=== PATIENT | female | born 1955 | race Hispanic/Latino ===

== ENCOUNTER 2017-02-11 13:26 | Outpatient (CLI) | payer OTHER ==
--- NOTE | 2017-02-12 11:21 | Mammography Report ---
BILATERAL DIGITAL DIAGNOSTIC MAMMOGRAM with CAD and BILATERAL BREAST ULTRASOUND: 02/11/17 CLINICAL: Bilateral lumps. The patient was vague and could not point to a particular lump in either breast. She stated that her doctor had felt lumps. COMPARISON:06/14/13 FINDINGS: The breasts are predominantly fatty with a few bilateral retroareolar fibroglandular densities.No mass, architectural distortion or suspicious calcifications . Ultrasound of the right breast (including all four quadrants and the retroareolar area) was performed and 2 areas of shadowing at 9 o'clock subareolar and 4 cm from the nipple. No distinct mass or cyst is identified. However, poorly marginated areas of slightly increased echogenicity are identified at the shadowing. The area is lumpy by palpation. Ultrasound of the left breast (including all four quadrants and the retroareolar area) was performed and demonstrated normal fibroglandular and fatty structures. No mass, cyst or shadowing. IMPRESSION: 1. Probably benign areas of slightly increased echogenicity with shadowing in the right breast at 9 o'clock. The appearance is suggestive of benign fat necrosis but the patient denies any known trauma to the breast. 2. Negative left breast. BI-RADS CATEGORY: 3 - - Probably Benign RECOMMENDATION: Six month followup right mammogram and right breast ultrasound. ACR BI-RADS MAMMOGRAPHIC CODES: 0 = Needs additional imaging evaluation; 1 = Negative; 2 = Benign; 3 = Probably benign; 4 = Suspicious; 5 = Malignant; 6 = Known biopsy-proven malignancy COMMENT: 1. Dense breast tissue, i.e., adenosis, fibrocystic changes, etc., may obscure an underlying neoplasm. 2. Approximately 10% of cancers are not detected with mammography. 3. A negative mammography report should not delay biopsy if a clinically suspicious mass is present. COMMENT: Patient follow-up letters are generated by our [employer] application.
--- NOTE | 2017-02-12 13:51 | Mammography Report ---
BONE DEXA:02/11/17 13:26:00 CLINICAL: Postmenopausal. No comparison. TECHNIQUE: Two site bone DEXA performed on an Hologic scanner. FINDINGS: The average BMD of the lumbar spine L1-L4 is 1.199g/cm squared with a T-score of +1.4 and a Z-score of +2.9. The average BMD of the left hip is 0.932g/cm squared with a T-score of -0.1 and a Z-score of +0.9. However, the femoral neck BMD is 0.661g/cm squared with a T score of -1.7 and a Z score of -0.3 IMPRESSION: 1. WHO classification: Normal with average fracture risk based on lumbar spine measurements. 2. WHO classification: Osteopenia with increased fracture risk based on left femoral neck measurements. RECOMMENDATION: Clinical correlation and routine screening. DEFINITIONS: BMD = Bone Mineral Density T-score = BMD related to mean peak bone mass of young adult (mean expressed in Standard Deviation) Z-score = Age matched BMD expressed in SD World Health Organization (WHO) Diagnostic Criteria Normal T-score > -1 SD Osteopenia T-score between -1 and -2.4 SD Osteoporosis T-score -2.5 SD or below NOTE: BMD is not the only risk factor for fracture. One should also consider factors such as the patient's age, risk of falling, previous osteoporotic fracture, family history of osteoporotic fractures, current smoker, and low body weight. Z-scores are not calculated if >80 years of age.
== END 2017-02-11 13:27 | disposition home or self-care (01) ==
LOC: SPVWC 13:26
PROVIDERS: ATTEND Obstetrics & Gynecology Gynecology
DX: M85.88 Other specified disorders of bone density and structure, other site (principal); N63 Unspecified lump in breast; S82.831A Other fracture of upper and lower end of right fibula, initial encounter for closed fracture; Z78.0 Asymptomatic menopausal state; X58.XXXA Exposure to other specified factors, initial encounter; Y93.89 Activity, other specified; Y92.89 Other specified places as the place of occurrence of the external cause; Y99.8 Other external cause status
CPT/HCPCS: 76641; 77080; G0204; 77066

== ENCOUNTER 2017-09-28 10:59 | Outpatient (CLI) | payer OTHER ==
--- NOTE | 2017-09-28 16:27 | Ultrasound Report ---
RIGHT DIGITAL DIAGNOSTIC MAMMOGRAM with CAD and RIGHT BREAST ULTRASOUND: 09/28/17 10:59:00 CLINICAL: Six month followup. COMPARISON:02/11/17 FINDINGS: Stable fibroglandular pattern with no mass or architectural distortion. Ultrasound of the right breast was performed at 9 o'clock and demonstrated several areas of shadowing produced by irregular hypoechoic masses with surrounding hyperechoic components. A 1.7 x 0.4 cm long segment of serpiginous duct approximately 5 cm from the nipple. This is not significantly changed compared to the prior exam. An irregular 6 mm shadowing mass with surrounding hyperechoic rim near the areola is not significantly changed. A solid hypoechoic irregular mass with shadowing is located closer to the nipple at 9 o'clock and measures 5 x 5 x 3 mm. This is more masslike when compared to the prior exam. IMPRESSION: A 5 mm shadowing mass at 9 o'clock at the areola and additional stable shadowing masses at 9 o'clock at approximately 2 cm from the nipple and 5 cm from the nipple.Although benign fat necrosis is the prime consideration, recommend ultrasound-guided needle biopsy of the 5 mm mass to exclude malignancy. BI-RADS CATEGORY: 4--Suspicious I discussed the findings and the recommendation for needle core biopsy with the patient at the time of the examination. ACR BI-RADS MAMMOGRAPHIC CODES: 0 = Needs additional imaging evaluation; 1 = Negative; 2 = Benign; 3 = Probably benign; 4 = Suspicious; 5 = Malignant; 6 = Known biopsy-proven malignancy COMMENT: 1. Dense breast tissue, i.e., adenosis, fibrocystic changes, etc., may obscure an underlying neoplasm. 2. Approximately 10% of cancers are not detected with mammography. 3. A negative mammography report should not delay biopsy if a clinically suspicious mass is present. COMMENT: Patient follow-up letters are generated by our [employer] application.
== END 2017-09-28 11:00 | disposition home or self-care (01) ==
LOC: SPVWC 10:59
PROVIDERS: ATTEND Obstetrics & Gynecology Gynecology
DX: N64.1 Fat necrosis of breast (principal); N63.10 Unspecified lump in the right breast, unspecified quadrant
CPT/HCPCS: 76642; G0206